=== PATIENT | female | born 1995 | race Hispanic/Latino ===

== ENCOUNTER 2018-07-09 16:28 | Emergency (ER) | payer BC, OTHER, SELFPAY ==
[2018-07-09 17:09] LABS: #Basophils 0.1 thou/uL (0.0-0.2); #Eosinphils 0.1 thou/uL (0.0-0.7); #Monocytes 0.8 thou/uL (0.11-0.59); #Neutrophils 6.2 thou/uL (1.40-6.50); %Basophils 0.9 % (0.0-1.0); %Eosinophils 0.7 % (0.0-10.0); %Lymphocytes 29.3 % (21.0-51.0); %Monocytes 7.7 % (0.0-10.0); %Neutrophils 61.4 % (42.0-75.0); Hemoglobin 13.2 g/dL (12.0-16.0); Mean Corpuscular HGB CONC 33.4 g/dL (32.0-36.0); Mean Corpuscular Hemoglobin 30.5 pg (27.0-31.0); Mean Corpuscular Volume 91.5 fL (78.0-98.0); Mean Platelet Volume 6.9 fL (7.4-10.4); Platelet Count 314 thou/uL (130-400); RBC Distribution Width 11.8 % (11.5-14.5); Red Blood Cell (RBC) Count 4.34 mill/uL (4.20-5.40); White Blood Cell (WBC) Count 10.1 thou/uL (4.8-10.8)
[2018-07-09 17:57] LABS: Bilirubin Negative (Negative); Blood, Urine Moderate (Negative); Clarity Clear (Clear); Glucose, Urine (Dipstick) Negative (Negative); Leukocyte Negative (Negative); Nitrite Negative (Negative); Protein, Urine (Dipstick) Negative (Neg-Trace); Urobilinogen 0.2 mg/dL (0.2-1.0)
[2018-07-09 18:04] LABS: Bacteria/HPF Rare-Few HPF (None Seen); Squamous Epithelial 0-3 HPF (0-3); WBC/HPF None Seen HPF (0-3)
--- NOTE | 2018-07-09 19:18 | ULT ---
PELVIC SONOGRAM TRANSABDOMINAL AND TRANSVAGINAL IMAGING WITH DUPLEX EVALUATION 07/09/18 HISTORY: Pelvic pain and bleeding. FINDINGS: The urinary bladder is unremarkable. Uterus has a homogeneous echotexture and is 5.4 cm. Endometrium is 0.4 cm. No free fluid. The right ovary is 3.7 cm with a dominant 2.9 cm follicle. Left ovary is 2. 9 cm. Good color and spectral doppler flow within each ovary. IMPRESSION: No significant abnormalties are demonstrated. POS: TAB
== END 2018-07-09 18:51 | disposition home or self-care (01) ==
LOC: SCSER 16:28
DX: N93.9 Abnormal uterine and vaginal bleeding, unspecified (principal); E11.9 Type 2 diabetes mellitus without complications; G43.909 Migraine, unspecified, not intractable, without status migrainosus; D35.2 Benign neoplasm of pituitary gland; Z79.84 Long term (current) use of oral hypoglycemic drugs; Z79.899 Other long term (current) drug therapy
CPT/HCPCS: 51701; 76856; 81003; 81015; 85025; A4353

== ENCOUNTER 2018-10-04 08:29 | Emergency (ER) | payer OTHER, SELFPAY ==
[2018-10-04 08:51] LABS: Bilirubin Negative (Negative); Blood, Urine Small (Negative); Clarity Slightly Cloudy (Clear); Glucose, Urine (Dipstick) Negative (Negative); Leukocyte Trace (Negative); Nitrite Negative (Negative); Protein, Urine (Dipstick) Negative (Neg-Trace); Urobilinogen 0.2 mg/dL (0.2-1.0); pH, Urine 6.5 (5.0-9.0)
[2018-10-04 08:52] LABS: Pregnancy Test - Urine (BHCG) Negative (Negative); Pregu Control Background? CLEAR/WHITE (CLR/WHITE); Pregu Control Bar Appear? YES (CONTROL BAR)
[2018-10-04 09:00] LABS: Bacteria/HPF 1+ HPF (None Seen); Squamous Epithelial 21-50 HPF (0-3)
[2018-10-04] MEDS ORDERED: Ketorolac Tromethamine 30 MG/ML VIAL ONE (09:04)
== END 2018-10-04 09:23 | disposition home or self-care (01) ==
LOC: SCSER 08:29
DX: N12 Tubulo-interstitial nephritis, not specified as acute or chronic (principal); M54.6 Pain in thoracic spine; E11.9 Type 2 diabetes mellitus without complications; G43.909 Migraine, unspecified, not intractable, without status migrainosus; Z79.899 Other long term (current) drug therapy
CPT/HCPCS: 81003; 81015; 81025; 87086; 96372; J1885

== ENCOUNTER 2019-11-17 15:23 | Emergency (ER) | payer OTHER ==
[2019-11-17] MEDS ORDERED: Bacitracin 1 PK ONE (17:00)
[2019-11-17] MEDS ORDERED: Acetaminophen 500 MG TAB ONE (17:00)
== END 2019-11-17 17:45 | disposition home or self-care (01) ==
LOC: ERS 15:23
DX: O9A.212 Injury, poisoning and certain other consequences of external causes complicating pregnancy, second trimester (principal); S20.222A Contusion of left back wall of thorax, initial encounter; S30.811A Abrasion of abdominal wall, initial encounter; O24.112 Pre-existing type 2 diabetes mellitus, in pregnancy, second trimester; E11.9 Type 2 diabetes mellitus without complications; O99.352 Diseases of the nervous system complicating pregnancy, second trimester; G43.909 Migraine, unspecified, not intractable, without status migrainosus; Z79.84 Long term (current) use of oral hypoglycemic drugs; Z79.82 Long term (current) use of aspirin; Z3A.21 21 weeks gestation of pregnancy; W20.8XXA Other cause of strike by thrown, projected or falling object, initial encounter